=== PATIENT | male | born 1995 | race Caucasian/White ===

== ENCOUNTER 2017-03-15 12:00 | Emergency (ER) | payer OTHER ==
[2017-03-15 12:16] VITALS: BP 141/74; PULSE 59; RESP 16; TEMP 97.9
--- NOTE | 2017-03-15 12:53 | ED ---
Upper Extremity HPI - General Chief Complaint: Extremity Injury, Upper Stated Complaint: Right Hand Injury Time Seen by Provider: 03/15/17 12:32 Source: patient, RN notes reviewed Mode of arrival: ambulatory Limitations: no limitations - History of Present Illness Initial Comments: Patient is a 21-year-old male presents to the emergency room for evaluation of right hand pain. Patient states last night he was hitting a punching bag with his fist and he thinks he hit it the wrong way. Patient states he is having pain over his first metacarpal and second metacarpal bone area of his hand. Patient states the pain is worse when he makes a fist or flexes and extends his wrist. Patient denies any previous injuries to that hand. Patient states he is right-hand dominant. Patient states he is having 9 out of 10 pain. Patient denies any other injuries during incident. - Related Data Home Medications Medication Instructions Recorded Confirmed No Known Home Medications [No 05/16/15 03/15/17 Known Home Medications] Allergies Allergy/AdvReac Type Severity Reaction Status Date / Time No Known Allergies Allergy Verified 03/15/17 12:16 Review of Systems ROS Statement: Those systems with pertinent positive or pertinent negative responses have been documented in the HPI. ROS Other: All systems not noted in ROS Statement are negative. Past Medical History Past Medical History: No Reported History History of Any Multi-Drug Resistant Organisms: None Reported Past Surgical History: No Surgical Hx Reported Past Psychological History: No Psychological Hx Reported Smoking Status: Never smoker Past Alcohol Use History: Occasional Past Drug Use History: None Reported General Exam - General Exam Comments Initial Comments: Sitting in exam room, no acute distress. Limitations: no limitations General appearance: alert, in no apparent distress Head exam: Present: atraumatic, normocephalic, normal inspection Eye exam: Present: normal appearance Respiratory exam: Absent: respiratory distress Right Elbow exam: Present: normal inspection, full ROM. Absent: tenderness Forearm Wrist exam: Present: normal inspection, full ROM. Absent: tenderness, tenderness over anatomical snuff box Hand Wrist exam: Present: normal inspection, full ROM, tenderness (Palpating over first and second metacarpal area.). Absent: swelling, laceration, ecchymosis, deformity Neuro motor exam: Present: wrist extension intact, thumb opposition intact, thumb IP flexion intact, thumb adduction intact, fingers 2-5 abduction intact Neurosensory exam: Present: 2-point discrimination Vascular: Present: normal capillary refill (Capillary refill less than 2 seconds ), radial pulse (2+), ulnar pulse (2+) Back exam: Present: normal inspection Neurological exam: Present: alert, oriented X3, CN II-XII intact Psychiatric exam: Present: normal affect, normal mood Skin exam: Present: warm, dry, intact, normal color. Absent: rash Course Vital Signs 03/15/17 12:13 Temperature 97.9 F Pulse Rate 59 L Respiratory 16 Rate Blood Pressure 141/74 O2 Sat by Pulse 99 Oximetry Medical Decision Making - Medical Decision Making Patient is a 21-year-old male presents to the emergency room for evaluation of right hand pain. Right hand/wrist x-ray negative for acute fractures or dislocations. Patient placed in [place] wrap and advised to follow-up with primary care provider symptoms not improving in 7-10 days. Patient states he understands everything that was discussed with him. Return parameters discussed. Case discussed with Dr. Snachez. - Radiology Data Radiology results: report reviewed, image reviewed Disposition Clinical Impression: Sprain of right hand Disposition: HOME SELF-CARE Condition: Good Instructions: Hand Sprain (ED) Additional Instructions: Ice on and off for 10-15 minutes for the next 24-48 hours. Take Tylenol or Motrin as needed for pain. Please follow-up with primary care provider in 7-10 days if symptoms are not improving . If new symptoms develop or symptoms worsen , please return to the ER. Referrals: Betsy Riddle DO [Primary Care Provider] - 1-2 days Time of Disposition: 13:37
--- NOTE | 2017-03-15 13:09 | XR ---
EXAMINATION TYPE: XR hand complete RT DATE OF EXAM: 03/15/2017 COMPARISON: NONE HISTORY: Pain TECHNIQUE: Three-view right hand FINDINGS: No acute fractures are evident. Joint spaces are preserved. Soft tissues are unremarkable. Bowel appears intact. Follow-up exams can be performed 7-10 days from acute trauma for continued pain. IMPRESSION: 1. Normal three-view right hand
--- NOTE | 2017-03-15 13:10 | XR ---
EXAMINATION TYPE: XR wrist complete RT DATE OF EXAM: 03/15/2017 COMPARISON: NONE HISTORY: Pain TECHNIQUE: 4 view right wrist FINDINGS: No acute fractures are evident. Joint spaces are preserved. Soft tissues are unremarkable. If there is pain at the anatomic snuff box, nuclear medicine bone scan would be recommended for addit ional evaluation. Follow-up exams can be performed 7-10 days from acute trauma for continued pain. IMPRESSION: 1. Normal 4 view right wrist
== END 2017-03-15 13:48 | disposition home or self-care (01) ==
LOC: EC 12:00
DX: S63.8X1A Sprain of other part of right wrist and hand, initial encounter (principal); W20.8XXA Other cause of strike by thrown, projected or falling object, initial encounter; Y93.89 Activity, other specified
CPT/HCPCS: 99283